=== PATIENT | male | born 1985 | race Caucasian/White ===

== ENCOUNTER 2022-05-21 08:43 | Emergency (ER) | payer OTHER ==
[~2022-05-21] VITALS: Ht 167.7 cm; Wt 97.5 kg
--- NOTE | 2022-05-21 09:06 | ED General ---
General Chief Complaint: Exposure Stated Complaint: VOMITING Source of Information: Patient Exam Limitations: No Limitations History of Present Illness Date Seen by Provider: May 21, 2022 Time Seen by Provider: 08:47 Initial Comments 36-year-old male with no pertinent past medical history coming in after potential ingestion. He was at work when there is an area that has once for get that produces clean water, and out of it can also come potassium hydroxide or a detergent. There is a special backfill mechanism that does not allow anything else to come out when water is only needed. People at this job use this beget for their drinking water. He drank 12 ounces of it at 530 this morning, it had a chlorine like taste to him, and he immediately vomited once. He had an upset stomach with it cramping a little bit afterwards, which has now improved. They contacted poison control and they recommended him coming to the ER for 6-hour evaluation from the time of ingestion. Currently he feels close to his baseline, no shortness of breath, chest pain, abdominal pain, current nausea, weakness, numbness, headache, vision changes, or any other concerns. Allergies and Home Medications Allergies Coded Allergies: No Known Drug Allergies (Unverified , 05/21/22) Patient Home Medication List Home Medication List Reviewed: Yes Review of Systems Review of Systems Constitutional: No fever EENTM: No blurred vision Respiratory: No cough Cardiovascular: No chest pain Gastrointestinal: No abdominal pain Genitourinary: no symptoms reported Musculoskeletal: no symptoms reported Skin: no symptoms reported Psychiatric/Neurological: No Symptoms Reported Hematologic/Lymphatic: No Symptoms Reported Immunological/Allergic: no symptoms reported All Other Systems Reviewed Negative Unless Noted: Yes Past Vxwtxsj-Bbthco-Wderjq Hx Patient Social History Smokeless Tobacco Frequency: Current Everyday User Use of E-Cig and/or Vaping dev: No Alcohol Use?: No Pt feels they are or have been: No Past Medical History Surgeries: No Physical Exam Vital Signs Vital Signs - First Documented 05/21/22 08:50 Temp 37.0 Pulse 90 Resp 22 B/P (MAP) 160/103 Pulse Ox 98 Capillary Refill : Less Than 3 Seconds Height, Weight, BMI Height: '" Weight: lbs. oz. kg; BMI Method: General Appearance: No Apparent Distress, WD/WN Eyes: Bilateral Eye Normal Inspection HEENT: PERRL/EOMI, Normal ENT Inspection, Pharynx Normal Neck: Full Range of Motion, Normal Inspection, Non Tender, Supple Respiratory: Chest Non Tender, Lungs Clear, Normal Breath Sounds, No Accessory Muscle Use, No Respiratory Distress Cardiovascular: Regular Rate, Rhythm, No Edema, Normal Peripheral Pulses Gastrointestinal: Normal Bowel Sounds, Non Tender, Soft; No Distended, No Guarding Back: Normal Inspection, No CVA Tenderness Extremity: Normal Capillary Refill, Normal Inspection, Normal Range of Motion, Non Tender, No Calf Tenderness, No Pedal Edema Neurologic/Psychiatric: Alert, No Motor/Sensory Deficits, Normal Mood/Affect Skin: Normal Color, Warm/Dry Lymphatic: No Adenopathy Progress/Results/Core Measures Suspected Sepsis Recent Fever Within 48 Hours: No Infection Criteria Present: None New/Unexplained Altered Menta: No SIRS Temperature: Pulse: 90 Respiratory Rate: 22 Blood Pressure 160 /103 Mean: 122 Results/Orders My Orders Orders - SUSAN CARNEY MD Chest 1 View Ap/Pa Only (05/21/22 09:03) Vital Signs/I&O 05/21/22 08:50 Temp 37.0 Pulse 90 Resp 22 B/P (MAP) 160/103 Pulse Ox 98 Capillary Refill : Less Than 3 Seconds Blood Pressure Mean: 122 Progress Note : Progress Note 36-year-old male with above history coming in after possible ingestion of either potassium hydroxide or some type of detergent that were both diluted. Vomited immediately afterwards and then he drank a bunch of water per the MSDS sheet. Patient came in and vitals were unremarkable with ABCs intact. He is essentially at his baseline. I contacted poison control and they recommended monitoring him until 11:30 AM as well as p.o. challenging him. He tolerated p.o. without difficulty and he is having no symptoms with him being completely back to baseline by 1130. I believe he is stable for discharge with outpatient follow-up. He was sent home with strict return precautions. Diagnostic Imaging Diagonstic Imaging: Xray Plain Films/CT/US/NM/MRI: chest Comments [facility], [place] NAME: GLORIA KELLY [facility] REC#: [id number] PT STATUS: REG ER : 1985 PHYSICIAN: SUSAN CARNEY MD ADMIT DATE: 05/21/22/ER FS Draft Date of Exam:05/21/22 CHEST 1 VIEW AP/PA ONLY INDICATION: Chemical ingestion EXAM: Portable chest at 9:13 AM FINDINGS: The heart size and pulmonary vascularity are normal. Lungs are clear. There are no effusions or pneumothoraces. IMPRESSION: No acute abnormalities in the chest. Dictated on workstation # [id number] Dict: 05/21/22916 Trans: 05/21/22917 [facility] [id number] Interpreted by: CATHY GUAJARDO MD Electronically signed by: Departure Impression Primary Impression: Accidental ingestion of substance Qualified Codes: T65.91XA - Toxic effect of unspecified substance, accidental (unintentional), initial encounter Disposition: HOME, SELF-CARE Condition: Stable Departure-Patient Inst. Decision time for Depature: 11:30 Referrals: NO,LOCAL PHYSICIAN (PCP/Family) Primary Care Physician Patient Instructions: Chemical Ingestion (DC) Add. Discharge Instructions: It is unlikely you have any issues if you have not developed any by time of leaving the ER. You may feel some nausea or some stomach discomfort. Is also possible he might have some diarrhea. Unless you start having severe abdominal pain, or the inability to swallow anything then I would just follow-up with your regular doctor. If things become much worse then I would come back to the ER. Work/School Note: Work Release Form Date Seen in the Emergency Department: May 21, 2022 Return to Work: May 21, 2022 Restrictions: No Restrictions SUSAN CARNEY MD May 21, 2022 09:06
--- NOTE | 2022-05-21 09:18 | Diagnostic Imaging Report ---
INDICATION: Chemical ingestion EXAM: Portable chest at 9:13 AM FINDINGS: The heart size and pulmonary vascularity are normal. Lungs are clear. There are no effusions or pneumothoraces. IMPRESSION: No acute abnormalities in the chest. Dictated by: Dictated on workstation # [id number]
[2022-05-21 11:20] VITALS: BP 159/97
== END 2022-05-21 11:38 | disposition home or self-care (01) ==
LOC: EDUNIT# 08:43 → ER FS 08:45
DX: T65.91XA Toxic effect of unspecified substance, accidental (unintentional), initial encounter (principal); F17.290 Nicotine dependence, other tobacco product, uncomplicated; Z28.310 Unvaccinated for COVID-19
CPT/HCPCS: 71045